=== PATIENT | female | born 1975 | race Caucasian/White ===

== ENCOUNTER 2017-06-24 17:49 | Emergency (ER) | payer OTHER ==
[2017-06-24 18:01] VITALS: BP 107/67
--- NOTE | 2017-06-24 18:19 | UC ---
Neck Pain HPI - HPI Summary HPI Summary: Pt has chronic posterior neck pain x 2 years, suddenly worse upon waking (no trauma) 2 days ago. Pain radiating down L arm since this morning. Denies weakness or numbness. No prior spinal surgery. Pain worse with turning head to the left, not improved after tramadol. - History of Current Complaint Chief Complaint: UCBackPain Stated Complaint: NECK/LEFT SHOULDER PAIN Time Seen by Provider: 06/24/17 17:57 Hx Obtained From: Patient Hx Last Menstrual Period: 10/23/15 ?: No Mechanism Of Injury: No Known Trauma Timing: Constant Onset/Duration: Gradual Onset Severity: Moderate Character: Aching, Spasmotic Aggravating Factors: Position, Movement Associated Signs & Symptoms: Positive: Paresthesia. Negative: Swelling, Weakness - Allergies/Home Medications Allergies/Adverse Reactions: Allergies Allergy/AdvReac Type Severity Reaction Status Date / Time Cyclobenzaprine AdvReac Tachycardia Verified 06/24/17 17:52 [From Flexeril] Gabapentin AdvReac Nausea And Verified 06/24/17 17:52 Vomiting PMH/Surg Hx/FS Hx/Imm Hx - Additional Past Medical History Additional PMH: chronic pain Endocrine History: Thyroid Disease Respiratory History: Asthma GI/ History: Ulcer - Surgical History Surgical History: Yes Surgery Procedure, Year, and Place: GALLBLADDER REMOVED. TUBAL LIGATION; LEFT OOPERECTOMY DONE AT [facility] ON December. hysterectomy - Family History Known Family History: Positive: Unknown - Social History Occupation: Unemployed Alcohol Use: None Alcohol Amount: glass or two of wine per month Substance Use Type: Prescribed Substance Use Comment - Amount & Last Used: tramadol Smoking Status (MU): Former Smoker Type: Cigarettes Length of Time of Smoking/Using Tobacco: 10 YRS Have You Smoked in the Last Year: No When Did the Patient Quit Smoking/Using Tobacco: 2004 Review Of Systems Constitutional: Positive: Negative Skin: Positive: Negative Eyes: Positive: Negative ENT: Positive: Negative Respiratory: Positive: Negative Cardiovascular: Positive: Negative Gastrointestinal: Positive: Negative Genitourinary: Positive: Negative Musculoskeletal: Positive: Arthralgia, Decreased ROM Neurological: Positive: Negative Psychological: Positive: Negative All Other Systems Reviewed And Are Negative: Yes Physical Exam Triage Information Reviewed: Yes Appearance: Well-Nourished, Pain Distress - mild Vital Signs: Initial Vital Signs Temp 97.9 F 06/24/17 17:54 Pulse 88 06/24/17 17:54 Resp 14 06/24/17 17:54 BP 107/67 06/24/17 17:54 Pulse Ox 100 06/24/17 17:54 Vital Signs Reviewed: Yes Eye Exam: Normal, Other - PERRL Eyes: Positive: Conjunctiva Clear ENT Exam: Normal ENT: Positive: Normal ENT inspection, Hearing grossly normal, Pharynx normal, TMs normal Dental Exam: Normal Neck: Positive: No Lymphadenopathy, Tenderness @ - posterior, diffuse, Other: - limited ROM Respiratory Exam: Normal Respiratory: Positive: Chest non-tender, Lungs clear, Normal breath sounds, No respiratory distress, No accessory muscle use Cardiovascular Exam: Normal Cardiovascular: Positive: RRR, No Murmur Musculoskeletal Exam: Other - full strength, ROM of BUE Musculoskeletal: Positive: ROM Limited @ - neck Neurological Exam: Normal Neurological: Positive: Alert Psychological Exam: Normal Skin Exam: Normal Neck Pain Course/Dx - Differential Dx/Diagnosis Provider Diagnoses: cervicalgia. cervical radiculopathy Discharge - Discharge Plan Condition: Stable Disposition: HOME Prescriptions: Tizanidine HCl [Zanaflex] 4 mg PO TID #30 cap Referrals: Javon Heart MD [Primary Care Provider] -
[2017-06-24] MEDS ORDERED: predniSONE TAB* 20 MG PO ONE (18:36)
[2017-06-24] MEDS ORDERED: HYDROcodone/ACETAMIN 5-325 MG* 1 TAB PO ONE (18:37)
--- NOTE | 2017-06-24 19:29 | RAD ---
INDICATION: Neck pain with left upper extremity radiation COMPARISON: None. TECHNIQUE: 5 views of the cervical spine were obtained. FINDINGS: There is nonspecific straightening of the normal cervical lordosis. The vertebral bodies and facet joints are otherwise appropriately aligned. No prevertebral soft tissue swelling or fracture is seen. Mild degenerative changes include loss of intervertebral disc height from C4 through C6. IMPRESSION: Mild degenerative changes and nonspecific straightening of the normal cervical lordosis without radiographically apparent acute abnormality. If the patient's symptoms persist, follow-up imaging is recommended.
== END 2017-06-24 18:49 | disposition home or self-care (01) ==
LOC: UCCORT 17:49
DX: M54.2 Cervicalgia (principal); M54.12 Radiculopathy, cervical region; E07.9 Disorder of thyroid, unspecified; J45.909 Unspecified asthma, uncomplicated; Z88.8 Allergy status to other drugs, medicaments and biological substances
CPT/HCPCS: 72040; 99212; G0463; J7512

== ENCOUNTER 2017-12-19 17:49 | Emergency (ER) | payer OTHER ==
[2017-12-19 18:27] VITALS: BP 113/77
[2017-12-19] MEDS ORDERED: predniSONE TAB* 20 MG PO ONE (20:19)
[2017-12-19] MEDS ORDERED: Amoxicillin PO (*) 500 MG CAP PO ONE (20:20)
--- NOTE | 2017-12-19 20:21 | UC ---
Respiratory Complaint HPI - HPI Summary HPI Summary: 42 yo female with one week hx of ocugh/wheezing and sinus pain/pressure chills ? fever - History of Current Complaint Chief Complaint: UCRespiratory Stated Complaint: CONGESTED Time Seen by Provider: 12/19/17 20:14 Hx Obtained From: Patient Hx Last Menstrual Period: 10/23/15 Onset/Duration: Gradual Onset Timing: Constant Severity Initially: Mild Severity Currently: Moderate Pain Intensity: 7 Pain Scale Used: 0-10 Numeric Character: Cough: Nonproductive Aggravating Factors: Other Alleviating Factors: Nothing Associated Signs And Symptoms: Positive: Chills, Nasal Congestion, Sinus Discomfort Related History: Similar Episode/Dx as: - bronchitis - Allergies/Home Medications Allergies/Adverse Reactions: Allergies Allergy/AdvReac Type Severity Reaction Status Date / Time cyclobenzaprine AdvReac Tachycardia Verified 12/19/17 18:19 gabapentin AdvReac Nausea And Verified 12/19/17 18:19 Vomiting PMH/Surg Hx/FS Hx/Imm Hx Previously Healthy: Yes Respiratory History: Asthma, Bronchitis, Pneumonia - Surgical History Surgical History: Yes Surgery Procedure, Year, and Place: GALLBLADDER REMOVED. TUBAL LIGATION; LEFT OOPERECTOMY DONE AT [facility] ON December. hysterectomy - Family History Known Family History: Positive: Hypertension - Social History Alcohol Use: None Alcohol Amount: glass or two of wine per month Substance Use Type: None Substance Use Comment - Amount & Last Used: tramadol Smoking Status (MU): Former Smoker Type: Cigarettes Length of Time of Smoking/Using Tobacco: 10 YRS Have You Smoked in the Last Year: No When Did the Patient Quit Smoking/Using Tobacco: 2004 Review of Systems Constitutional: Fever, Chills, Fatigue Skin: Negative Eyes: Negative ENT: Nasal Discharge, Sinus Congestion, Sinus Pain/Tenderness Respiratory: Cough Cardiovascular: Negative Gastrointestinal: Negative Genitourinary: Negative Motor: Negative Neurovascular: Negative Musculoskeletal: Negative Neurological: Negative Psychological: Negative Is Patient Immunocompromised?: No All Other Systems Reviewed And Are Negative: Yes Physical Exam Triage Information Reviewed: Yes Appearance: Well-Appearing, No Pain Distress, Well-Nourished Vital Signs: Initial Vital Signs Temp 98 F 12/19/17 18:21 Pulse 102 12/19/17 18:21 Resp 20 12/19/17 18:21 BP 113/77 12/19/17 18:21 Pulse Ox 100 12/19/17 18:21 Vital Signs Reviewed: Yes Eyes: Positive: Conjunctiva Clear ENT: Positive: Hearing grossly normal, Nasal congestion, Nasal drainage, Sinus tenderness, Uvula midline. Negative: Tonsillar swelling, Tonsillar exudate, Trismus, Muffled voice, Hoarse voice Neck: Positive: Supple, Nontender Respiratory: Positive: Lungs clear, Normal breath sounds, No respiratory distress, No accessory muscle use, Wheezing - with forced expiration only Cardiovascular: Positive: RRR, No Murmur Musculoskeletal: Positive: ROM Intact, No Edema Neurological: Positive: Alert Psychological Exam: Normal Skin Exam: Normal UC Diagnostic Evaluation - Laboratory O2 Sat by Pulse Oximetry: 100 - normal/not hypoxic Respiratory Course/Dx - Differential Dx/Diagnosis Provider Diagnoses: acute bronchitis with bronchospasm. sinsusitis Discharge - Discharge Plan Condition: Stable Disposition: HOME Prescriptions: Amoxicillin PO (*) [Amoxicillin 875 MG (*)] 875 mg PO BID #20 tab predniSONE [Deltasone] 40 mg PO DAILY #8 tab Patient Education Materials: Acute Bronchitis (ED) Referrals: Javon Heart MD [Primary Care Provider] - 1 Week Additional Instructions: recheck for new or worsening symptoms use inhaler as directed
== END 2017-12-19 20:27 | disposition home or self-care (01) ==
LOC: UCCORT 17:49
DX: J20.9 Acute bronchitis, unspecified (principal); J32.9 Chronic sinusitis, unspecified; Z87.891 Personal history of nicotine dependence
CPT/HCPCS: 99212; A9270-GY; G0463; J7512

== ENCOUNTER 2019-04-26 06:18 | Day surgery (SDC) | payer OTHER ==
--- NOTE | 2019-04-11 11:54 | HP ---
PREOPERATIVE HISTORY AND PHYSICAL: DATE OF SURGERY/ADMISSION: 04/26/19 [facility] ATTENDING SURGEON: Gracie Castorena MD * (DICTATED BY URIAH AGUAYO) PROCEDURE: Right wrist carpal tunnel release, ulnar nerve decompression at the right wrist. DATE OF OFFICE VISIT/ENCOUNTER: 04/08/19 HISTORY OF PRESENT ILLNESS: This is a 43-year-old female who complains of numbness and tingling in her right hand for 3 to 4 months. A nerve conduction study was ordered by Dr. Heart and the study showed moderate right carpal tunnel syndrome. She has tried bracing and other conservative measures, but they have not relieved her symptoms. She is complaining of numbness and tingling in all of her fingers and she complains of weakness in the hand as well. After nerve conduction study and clinical evaluation, she was found to have carpal tunnel syndrome and an ulnar nerve compression at the wrist. She has consented to proceed with surgical intervention for these problems. She has a pain management clinic for chronic back pain and takes Tramadol regularly. PAST MEDICAL HISTORY: 1. Hypothyroidism. 2. Asthma. 3. Hypercholesterolemia. 4. Back pain. 5. History of diverticulitis. 6. Depression/anxiety. PAST SURGICAL HISTORY: 1. Cholecystectomy. 2. Tubal ligation. 3. Ovarian cystectomy. 4. Hysterectomy. CURRENT MEDICATIONS: 1. Amitriptyline 10 mg two tabs q.h.s. 2. Bupropion hydrochloride SR 100 mg daily. 3. Cetirizine HCL 10 mg daily. 4. Dicyclomine HCl 10 mg daily. 5. Divalproex sodium 500 mg daily. 6. Flovent inhaler 2 puffs b.i.d. 7. Hyoscyamine sulfate 0.125 mg 8. Levothyroxine sodium 50 mcg daily. 9. Montelukast sodium 10 mg 1 tab daily. 10. Phendimetrazine tartrate 35 mg 2 tabs three times a day. 11. Pro-Air inhaler p.r.n. 12. Tramadol 50 mg 1 to 2 tabs p.o. q.4 to 6 hours p.r.n. ALLERGIES: Flexeril causes hives. FAMILY MEDICAL HISTORY: Noncontributory. SOCIAL HISTORY: The patient is on disability. She is a former smoker. She quit 14 years ago, prior to that, she smoked for 10 years a pack per day. She denies recreational drug use and does not drink alcohol. REVIEW OF SYSTEMS: General: Positive for weakness, fatigue, and weight loss. Negative for cephalic, cardiovascular, respiratory. GI is positive for nausea, vomiting, diarrhea. Negative . Musculoskeletal: Positive for recurrent complaint along with chronic back pain. Negative integumentary and endocrine. Neurologic is positive for depression/anxiety. Negative hematologic symptoms. Infectious disease negative for MRSA, hepatitis C, HIV. PHYSICAL EXAMINATION GENERAL: A well-developed, well-nourished 43-year-old female in no acute stress. VITAL SIGNS: Height 4 feet 8 inches, weight 152 pounds, pulse rate 106, blood pressure 128/78. HEENT: Normocephalic, atraumatic. Pupils are equal, round, and reactive to light and accommodation. Extraocular movements are intact NECK: Supple. No palpable lymph nodes. Throat is clear. PULMONARY: Lungs are clear to auscultation bilaterally. No wheezes, rales, or rhonchi. CARDIOVASCULAR: Regular rate and rhythm S1, S2. No murmurs, rubs or gallops. No edema. ABDOMEN: Positive bowel sounds, soft, nontender. NEUROLOGIC: Alert and oriented x3. Cranial nerves II through XII are intact. Sensation is intact to light touch. MUSCULOSKELETAL: On exam of her right upper extremity, she has a positive Tinel 's sign at the median nerve at the wrist and at the ulnar nerve at the wrist. She has negative Tinel's at the ulnar nerve at elbow. She has weakness with finger abduction on the right compared to the left and weakness with thumb abduction on the right. There is no thenar atrophy. She has good motion in her fingers and her wrist. Skin is intact. IMPRESSION: Right ulnar nerve compression at the wrist and carpal tunnel syndrome on the right. PLAN: The patient is scheduled to undergo a right wrist carpal tunnel release and an ulnar nerve decompression at the right wrist with Dr. Castorena on 04/26/19. She will return to the office 10 days post-op for followup and suture/staple removal. She has Tramadol as prescribed by the Pain Clinic and she will plan on using that for post-operative pain management. URIAH AGUAYO [id number]/[facility] #: [id number] [facility] CENTERJose D
[~2019-04-26 06:18] MED LIST: Buffered Lidocaine 1% SYRIN* 1 ML/SYRINGE INTRADERM ONE; Lactated Ringers 1000 ML Bag* 1,000 ML IV SCH
[2019-04-26] MEDS ORDERED: Lidocaine 1% INJ* 10 MG/ML 30 ML SDV ONE (07:07)
[2019-04-26] MEDS ORDERED: Naloxone* 0.4 MG/ML 1 ML VIAL IV PRN (07:27)
[2019-04-26] MEDS ORDERED: Midazolam* 1 MG/ML 5 ML VIAL (5 MG) ONE (07:29)
[2019-04-26] MEDS ORDERED: fentaNYL* 50 MCG/ML 2 ML VIAL (100 MCG VIAL) ONE (07:29)
[2019-04-26 08:55] VITALS: BP 102/68
--- NOTE | 2019-04-26 13:30 | OP ---
DATE OF OPERATION: 04/26/19 [facility] DATE OF : 75 SURGEON: Gracie Castorena MD INLETTER: URIAH Lopez ANESTHESIA: Local MAC. PRE-OP DIAGNOSIS: Median and ulnar nerve compression at the right wrist. POST-OP DIAGNOSIS: Median and ulnar nerve compression at the right wrist. OPERATIVE PROCEDURE: Median and ulnar nerve decompression at the right wrist. ESTIMATED BLOOD LOSS: Zero. TOURNIQUET TIME: 15 minutes. INDICATIONS FOR PROCEDURE: Damari is a 43-year-old female who has numbness and tingling in her right hand and exam and nerve conduction study consistent with median and ulnar nerve compression at the right wrist. She presents for nerve decompression. DESCRIPTION OF PROCEDURE: The patient was brought to the operating room, was given a sedation anesthetic and a local infiltration of 10 cc of 1% plain lidocaine in the palm of her right hand. The skin of her right hand and forearm was prepped and draped in the usual sterile fashion. The hand and forearm were exsanguinated and the tourniquet elevated to 250 mmHg. A longitudinal incision was made in the palm and then zig-zag incision was made across the wrist crease. We dissected sharply through the subcutaneous tissue down to the transverse carpal ligament. The ligament was divided sharply with a knife and then more proximally with the scissors. The nerve was dissected free from the surrounding tissue. Next, the incision was extended proximally zigzagging across the wrist and the ulnar nerve was located in the distal forearm and then traced out through Guyon's canal and completely released. The wound was copiously irrigated with saline. The skin edges were reapproximated with 4-0 nylon suture. The wound was dressed with Xeroform, 4x4, Webril, and an Felton wrap. The patient tolerated the procedure well and was brought to the recovery room in good condition. [id number]/[facility] #: [id number] [facility]Jose D
== END 2019-04-26 08:45 | disposition home or self-care (01) ==
LOC: OREAST 06:18
PROVIDERS: ATTEND Orthopaedic Surgery
DX: G56.01 Carpal tunnel syndrome, right upper limb (principal); G56.21 Lesion of ulnar nerve, right upper limb; E03.9 Hypothyroidism, unspecified; J45.909 Unspecified asthma, uncomplicated; E78.00 Pure hypercholesterolemia, unspecified; F41.8 Other specified anxiety disorders; Z87.891 Personal history of nicotine dependence; K31.84 Gastroparesis
CPT/HCPCS: J2250; J3010